=== PATIENT | male | born 1990 | race American Indian/Alaskan Native ===

== ENCOUNTER 2018-01-04 22:10 | Emergency (ER) | payer BC ==
[2018-01-04 22:41] VITALS: BP 127/83
[2018-01-05] MEDS ORDERED: PERCOCET 5/325 ONE (04:16)
[2018-01-05] MEDS: PERCOCET 5/325 PO ONE (04:20)
[2018-01-05] MEDS ORDERED: BOOSTRIX IM ONE (06:07)
[2018-01-05] MEDS: BOOSTRIX IM ONE (06:08)
--- NOTE | 2018-01-05 06:12 | Emergency Department Report ---
- General Chief Complaint: Laceration/Recheck/Suture Stated Complaint: LAC TO HAND Time Seen by Provider: 01/05/18 04:40 Source: patient Mode of arrival: Ambulatory Limitations: No Limitations - History of Present Illness Initial Comments: 27-year-old male comes in reports to the ED for complaint of right fourth and pinky finger laceration status post change in a field filter today while at work. Patient reports that he is not up-to-date on his tetanus. -: During the night Extremity Location: Right: Hand (fourth and fifth digit tips) Place: work Patient Tetanus UTD: No Context: accidental Associated Symptoms: pain. denies: loss of feeling/numbness - Related Data Previous Rx's Medication Instructions Recorded Last Taken Type Acetaminophen/Codeine [Tylenol 1 tab PO Q6H PRN #12 tab 01/05/18 Unknown Rx /Codeine # 3 tab] Sulfamethoxazole/Trimethoprim 1 each PO BID #20 tablet 01/05/18 Unknown Rx [Bactrim Ds Tablet] Allergies Allergy/AdvReac Type Severity Reaction Status Date / Time No Known Allergies Allergy Verified 01/04/18 22:35 ED Review of Systems ROS: Stated complaint: LAC TO HAND Other details as noted in HPI Constitutional: denies: chills, fever Skin: other (cut to right fourth and fifth digit) ED Past Medical Hx - Past Medical History Previous Medical History?: No - Surgical History Past Surgical History?: No - Social History Smoking Status: Current Every Day Smoker - Medications Home Medications: Home Medications Medication Instructions Recorded Confirmed Last Taken Type Acetaminophen/Codeine [Tylenol 1 tab PO Q6H PRN #12 tab 01/05/18 Unknown Rx /Codeine # 3 tab] Sulfamethoxazole/Trimethoprim 1 each PO BID #20 tablet 01/05/18 Unknown Rx [Bactrim Ds Tablet] ED Physical Exam - General Limitations: No Limitations General appearance: alert, in no apparent distress - Head Head exam: Present: atraumatic, normocephalic - ENT ENT exam: Present: mucous membranes moist - Expanded Skin Exam Expanded Type of lesion: Present: laceration (for further fifth digit fifth digit near avulsion laceration, fourth digit 50% circumference of the tip bleeding controlled pain is elicited with palpation) ED Course Vital Signs 01/04/18 22:35 Temperature 99.1 F Pulse Rate 79 Respiratory 18 Rate Blood Pressure 127/83 O2 Sat by Pulse 98 Oximetry Critical care attestation.: If time is entered above; I have spent that time in minutes in the direct care of this critically ill patient, excluding procedure time. ED Disposition Clinical Impression: Laceration of finger of right hand with complication Qualifiers: Encounter type: initial encounter Qualified Code(s): S61.219A - Laceration without foreign body of unspecified finger without damage to nail, initial encounter Disposition: DC- TO HOME OR SELFCARE Is pt being admited?: No Does the pt Need Aspirin: No Condition: Stable Instructions: Absorbable Suture Care (ED), Laceration (ED), Suture Care (ED), Finger Laceration (ED) Additional Instructions: Please keep the wound clean and dry. Please take antibiotics as prescribed. Please take pain medication as needed. Any signs of infection such as swelling increases pain. Discharge or the wound is getting black please return to the emergency room immediately. Prescriptions: Acetaminophen/Codeine [Tylenol /Codeine # 3 tab] 1 tab PO Q6H PRN #12 tab PRN Reason: Pain , Severe (7-10) Sulfamethoxazole/Trimethoprim [Bactrim Ds Tablet] 1 each PO BID #20 tablet Referrals: PRIMARY CARE, [Primary Care Provider] - 3-5 Days Forms: Work/School Release Form(ED), Accompanied Note
== END 2018-01-05 07:10 | disposition home or self-care (01) ==
LOC: ED 22:10
DX: S61.214A Laceration without foreign body of right ring finger without damage to nail, initial encounter (principal); S61.216A Laceration without foreign body of right little finger without damage to nail, initial encounter; F17.200 Nicotine dependence, unspecified, uncomplicated; W45.8XXA Other foreign body or object entering through skin, initial encounter; Y93.89 Activity, other specified; Y92.89 Other specified places as the place of occurrence of the external cause; Y99.8 Other external cause status
CPT/HCPCS: 90471; 90715; 99282